=== PATIENT | male | born 1990 | race Caucasian/White ===

== ENCOUNTER → 2018-03-14 11:02 | Outpatient (CLI) | payer OTHER, MEDICAID, SELFPAY ==
[2018-03-14 12:02] LABS: Add Manual Diff / Slide Review NO; Basophils Absolute Auto 0 /uL (0-100); Basophils Percent Auto 0.9 % (0-2); Eosinophils Absolute Auto 400 /uL (0-450); Hematocrit 40.3 % (41-53); Hemoglobin 14.2 g/dL (13.5-17.5); Lymphocytes Absolute Auto 2200 /uL (1100-4500); Lymphocytes Percent Auto 47.5 % (25-40); Mean Corpuscular HGB Conc 35.3 % (30-36); Mean Corpuscular Hemoglobin 32.3 PG (26-34); Mean Corpuscular Volume 91.4 fL (80-100); Monocytes Absolute Auto 300 /uL (0-900); Monocytes Percent Auto 7.3 % (3-14); Neutrophils Absolute Auto 1600 /uL (1500-7000); Neutrophils Percent Auto 36.3 % (50-75); Platelet Count 136 X10^3/uL (150-400); Red Cell Distribution Width 13.4 % (11.6-14.8); White Blood Cell Count 4.5 X10^3/uL (4.5-11.0)
[2018-03-14 12:25] LABS: Alanine Aminotransferase 55 IU/L (21-72); Albumin 4.2 g/dL (3.5-5.0); Albumin Globulin Ratio 1.6 (1.0-2.8); Alkaline Phosphatase 47 U/L (38-126); Aspartate Aminotransferase 37 IU/L (17-59); BUN Creatinine Ratio 17.1 (6-22); Bilirubin Total 0.5 mg/dL (0.2-1.3); Blood Urea Nitrogen 12 mg/dL (9-20); Carbon Dioxide 22 mmol/L (22-32); Chloride 103 mmol/L (98-107); Estimated Glomerular Filt Rate > 60.0 mL/min (>60); Globulin 2.6 g/dL (1.7-4.1); Glucose 157 mg/dL (70-100); HEMOLYSIS < 15 (0-50); Potassium 3.7 mmol/L (3.4-5.1); Sodium 137 mmol/L (137-145); Total Protein 6.8 g/dL (6.3-8.2)
[2018-03-16 14:49] LABS: Valproic Acid (Depakene) Total 74.7 mg/L (50.0-100.0)
== END ==
PROVIDERS: PCP Family Medicine; Visit Provider Nurse Practitioner Psychiatric/Mental Health
DX: F20.9 Schizophrenia, unspecified (principal)
CPT/HCPCS: 36415; 80053; 80164; 85025

== ENCOUNTER → 2018-09-05 10:05 | Outpatient (CLI) | payer OTHER, MEDICAID, SELFPAY ==
[2018-09-05 10:49] LABS: Add Manual Diff / Slide Review NO; Basophils Absolute Auto 0 /uL (0-100); Basophils Percent Auto 0.8 % (0-2); Eosinophils Absolute Auto 300 /uL (0-450); Hematocrit 38.3 % (41-53); Hemoglobin 13.2 g/dL (13.5-17.5); Lymphocytes Absolute Auto 3200 /uL (1100-4500); Lymphocytes Percent Auto 55.8 % (25-40); Mean Corpuscular HGB Conc 34.6 % (30-36); Mean Corpuscular Hemoglobin 31.7 PG (26-34); Mean Corpuscular Volume 91.6 fL (80-100); Monocytes Absolute Auto 500 /uL (0-900); Monocytes Percent Auto 8.1 % (3-14); Neutrophils Absolute Auto 1700 /uL (1500-7000); Neutrophils Percent Auto 29.3 % (50-75); Platelet Count 153 X10^3/uL (150-400); Red Blood Cell Count 4.18 X10^6/uL (4.5-5.9); Red Cell Distribution Width 13.3 % (11.6-14.8); White Blood Cell Count 5.7 X10^3/uL (4.5-11.0)
[2018-09-05 11:14] LABS: Alanine Aminotransferase 109 IU/L (21-72); Albumin 4.1 g/dL (3.5-5.0); Albumin Globulin Ratio 1.6 (1.0-2.8); Alkaline Phosphatase 46 U/L (38-126); Aspartate Aminotransferase 80 IU/L (17-59); BUN Creatinine Ratio 14.4 (6-22); Bilirubin Total 0.6 mg/dL (0.2-1.3); Blood Urea Nitrogen 13 mg/dL (9-20); Calcium 9.2 mg/dL (8.4-10.2); Carbon Dioxide 23 mmol/L (22-32); Chloride 100 mmol/L (98-107); Estimated Glomerular Filt Rate > 60.0 mL/min (>60); Globulin 2.6 g/dL (1.7-4.1); Glucose 82 mg/dL (70-100); HEMOLYSIS < 15 (0-50); Potassium 4.1 mmol/L (3.4-5.1); Sodium 135 mmol/L (137-145); Total Protein 6.7 g/dL (6.3-8.2)
[2018-09-08 14:35] LABS: Valproic Acid (Depakene) Total 84.9 mg/L (50.0-100.0)
== END ==
PROVIDERS: PCP Family Medicine; Visit Provider Nurse Practitioner Psychiatric/Mental Health
DX: F20.9 Schizophrenia, unspecified (principal)
CPT/HCPCS: 36415; 80053; 80164; 85025

== ENCOUNTER → 2019-01-18 10:13 | Outpatient (CLI) | payer OTHER, MEDICAID, SELFPAY ==
[2019-01-18 11:23] LABS: Add Manual Diff / Slide Review NO; Basophils Absolute Auto 0 /uL (0-100); Basophils Percent Auto 0.6 % (0-2); Eosinophils Absolute Auto 200 /uL (0-450); Eosinophils Percent Auto 3.2 % (2-4); Hematocrit 39.7 % (41-53); Hemoglobin 14.1 g/dL (13.5-17.5); Lymphocytes Absolute Auto 2700 /uL (1100-4500); Lymphocytes Percent Auto 54.1 % (25-40); Mean Corpuscular HGB Conc 35.6 % (30-36); Mean Corpuscular Hemoglobin 32.7 PG (26-34); Mean Corpuscular Volume 91.8 fL (80-100); Monocytes Absolute Auto 500 /uL (0-900); Monocytes Percent Auto 10.2 % (3-14); Neutrophils Absolute Auto 1600 /uL (1500-7000); Neutrophils Percent Auto 31.9 % (50-75); Platelet Count 133 X10^3/uL (150-400); Red Blood Cell Count 4.32 X10^6/uL (4.5-5.9); Red Cell Distribution Width 13.3 % (11.6-14.8)
[2019-01-18 11:34] LABS: Alanine Aminotransferase 48 IU/L (<50); Albumin 4.2 g/dL (3.5-5.0); Albumin Globulin Ratio 1.6 (1.0-2.8); Alkaline Phosphatase 43 U/L (38-126); Aspartate Aminotransferase 45 IU/L (17-59); BUN Creatinine Ratio 14.4 (6-22); Bilirubin Total 0.6 mg/dL (0.2-1.3); Blood Urea Nitrogen 13 mg/dL (9-20); Calcium 9.4 mg/dL (8.4-10.2); Carbon Dioxide 24 mmol/L (22-32); Chloride 105 mmol/L (98-107); Cholesterol 251 mg/dL (140-199); Estimated Glomerular Filt Rate > 60.0 mL/min (>60); Globulin 2.7 g/dL (1.7-4.1); Glucose 86 mg/dL (70-100); HDL Cholesterol 20 mg/dL (40-60); HEMOLYSIS < 15 (0-50); Sodium 138 mmol/L (137-145); Total Protein 6.9 g/dL (6.3-8.2); Triglycerides 463 mg/dL (35-150)
[2019-01-18 11:36] LABS: Hemoglobin A1C% w Est Avg Glu 4.9 % (4.0-6.0)
[2019-01-23 07:48] LABS: Valproic Acid (Depakene) Total 144.1 mg/L (50.0-100.0)
== END ==
PROVIDERS: Family Provider Internal Medicine; PCP Anesthesiology Pain Medicine; Visit Provider Nurse Practitioner Psychiatric/Mental Health
DX: F20.9 Schizophrenia, unspecified (principal); F25.0 Schizoaffective disorder, bipolar type
CPT/HCPCS: 36415; 80053; 80061; 80164; 83036; 85025

== ENCOUNTER → 2019-02-06 09:30 | Outpatient (CLI) | payer OTHER, MEDICAID, SELFPAY ==
[2019-02-09 14:52] LABS: Valproic Acid (Depakene) Total 85.2 mg/L (50.0-100.0)
== END ==
PROVIDERS: Family Provider Internal Medicine; Visit Provider Nurse Practitioner Psychiatric/Mental Health
DX: F20.9 Schizophrenia, unspecified (principal)
CPT/HCPCS: 36415; 80164

== ENCOUNTER → 2019-07-31 10:10 | Outpatient (CLI) | payer OTHER, MEDICAID, SELFPAY ==
[2019-07-31 11:47] LABS: Add Manual Diff / Slide Review NO; Basophils Absolute Auto 100 /uL (0-100); Eosinophils Absolute Auto 800 /uL (0-450); Eosinophils Percent Auto 14.1 % (2-4); Hematocrit 39.9 % (41-53); Hemoglobin 13.9 g/dL (13.5-17.5); Lymphocytes Absolute Auto 2300 /uL (1100-4500); Mean Corpuscular HGB Conc 34.8 % (30-36); Mean Corpuscular Hemoglobin 31.7 PG (26-34); Mean Corpuscular Volume 90.9 fL (80-100); Monocytes Absolute Auto 600 /uL (0-900); Monocytes Percent Auto 10.3 % (3-14); Neutrophils Absolute Auto 2200 /uL (1500-7000); Neutrophils Percent Auto 36.6 % (50-75); Platelet Count 177 X10^3/uL (150-400); Red Blood Cell Count 4.39 X10^6/uL (4.5-5.9); Red Cell Distribution Width 13.7 % (11.6-14.8)
[2019-07-31 11:59] LABS: Alanine Aminotransferase 40 IU/L (<50); Albumin 4.2 g/dL (3.5-5.0); Albumin Globulin Ratio 1.5 (1.0-2.8); Alkaline Phosphatase 44 U/L (38-126); Aspartate Aminotransferase 32 IU/L (17-59); BUN Creatinine Ratio 11.5 (6-22); Bilirubin Total 0.5 mg/dL (0.2-1.3); Blood Urea Nitrogen 9 mg/dL (9-20); Calcium 9.7 mg/dL (8.4-10.2); Carbon Dioxide 23 mmol/L (22-32); Chloride 105 mmol/L (98-107); Estimated Glomerular Filt Rate > 60.0 mL/min (>60); Globulin 2.8 g/dL (1.7-4.1); Glucose 87 mg/dL (70-100); HEMOLYSIS 16 (0-50); Potassium 3.8 mmol/L (3.4-5.1); Sodium 139 mmol/L (137-145)
[2019-08-01 04:41] LABS: Valproic Acid (Depakene) Total 93 ug/mL (50-100)
== END ==
PROVIDERS: Family Provider Internal Medicine; PCP Internal Medicine; Referring Provider Nurse Practitioner Psychiatric/Mental Health; Visit Provider Nurse Practitioner Psychiatric/Mental Health
DX: I20.9 Angina pectoris, unspecified (principal)
CPT/HCPCS: 36415; 80053; 80164; 85025

== ENCOUNTER → 2019-08-12 10:29 | Outpatient (CLI) | payer OTHER, MEDICAID, SELFPAY ==
[2019-08-12 12:50] LABS: Cholesterol 212 mg/dL (140-199); HDL Cholesterol 21 mg/dL (40-60); Triglycerides 431 mg/dL (35-150)
== END ==
PROVIDERS: Family Provider Internal Medicine; PCP Internal Medicine; Referring Provider Internal Medicine; Visit Provider Internal Medicine
DX: E78.5 Hyperlipidemia, unspecified (principal)
CPT/HCPCS: 36415; 80061

== ENCOUNTER → 2019-11-15 14:02 | Outpatient (CLI) | payer OTHER, MEDICAID, SELFPAY ==
[2019-11-15 15:16] LABS: Alanine Aminotransferase 29 IU/L (<50); Albumin 4.2 g/dL (3.5-5.0); Albumin Globulin Ratio 1.7 (1.0-2.8); Alkaline Phosphatase 48 U/L (38-126); Aspartate Aminotransferase 29 IU/L (17-59); Bilirubin Total 0.5 mg/dL (0.2-1.3); Bilirubin Unconjugated 0.4 mg/dL (0.0-1.1); Cholesterol 173 mg/dL (140-199); Globulin 2.5 g/dL (1.7-4.1); HDL Cholesterol 26 mg/dL (40-60); HEMOLYSIS < 15 (0-50); LDL Cholesterol Calculated 81 mg/dL (<100); Total Protein 6.7 g/dL (6.3-8.2); Triglycerides 332 mg/dL (35-150)
== END ==
PROVIDERS: Family Provider Internal Medicine; PCP Student in an Organized Health Care Education/Training Program; Referring Provider Student in an Organized Health Care Education/Training Program; Visit Provider Student in an Organized Health Care Education/Training Program
DX: E78.2 Mixed hyperlipidemia (principal); Z79.899 Other long term (current) drug therapy
CPT/HCPCS: 36415; 80061; 80076

== ENCOUNTER → 2020-03-18 09:16 | Outpatient (CLI) | payer OTHER, MEDICAID, SELFPAY ==
[2020-03-19 02:44] LABS: Valproic Acid (Depakene) Total 84 ug/mL (50-100)
== END ==
PROVIDERS: Family Provider Internal Medicine; PCP Student in an Organized Health Care Education/Training Program; Referring Provider Nurse Practitioner Psychiatric/Mental Health; Visit Provider Nurse Practitioner Psychiatric/Mental Health
DX: F20.9 Schizophrenia, unspecified (principal)
CPT/HCPCS: 36415; 80164

== ENCOUNTER → 2021-03-06 16:14 | Outpatient (CLI) | payer OTHER, MEDICAID, SELFPAY ==
--- NOTE | 2021-03-06 16:19 | DI.RAD.S_ITS ---
PROCEDURE: XR ANKLE LT MIN 3V INDICATIONS: ankle strain TECHNIQUE: 3 views of the ankle were acquired. COMPARISON: None. FINDINGS: Bones: No fractures or dislocations. Ankle mortise is normally aligned. No suspicious bony lesions. The talar dome demonstrates no alejandro abnormality. Plantar and Achilles calcaneal spurs are seen. A presumed bone island can be seen involving the anterior aspect of the calcaneus. Soft tissues: Prominent soft tissue swelling is seen medially and laterally. IMPRESSION: Soft tissue swelling is seen, without an acute bony abnormality seen by plain film. If there is point tenderness (or other clinical suspicion for a fracture not seen on these images) then a dedicated CT or a short-term followup plain film series could be considered for further evaluation, as clinically appropriate. Dictated by: Cristóbal Neil M.D. on 03/06/2021 at 15:50 Approved by: Cristóbal Neil M.D. on 03/06/2021 at 15:51
== END ==
PROVIDERS: Family Provider Internal Medicine; PCP Student in an Organized Health Care Education/Training Program; Referring Provider Nurse Practitioner Family; Visit Provider Nurse Practitioner Family
DX: S96.912A Strain of unspecified muscle and tendon at ankle and foot level, left foot, initial encounter (principal)
CPT/HCPCS: 73610

== ENCOUNTER → 2022-04-30 09:29 | Outpatient (CLI) | payer OTHER, MEDICAID, SELFPAY ==
[2022-04-30 12:22] LABS: Cholesterol 193 mg/dL (140-199); HDL Cholesterol 24 mg/dL (40-60); LDL Cholesterol Calculated 97 mg/dL (<100); Triglycerides 358 mg/dL (35-150)
== END ==
PROVIDERS: Family Provider Internal Medicine; PCP Student in an Organized Health Care Education/Training Program; Referring Provider Student in an Organized Health Care Education/Training Program; Visit Provider Student in an Organized Health Care Education/Training Program
DX: E78.2 Mixed hyperlipidemia (principal)
CPT/HCPCS: 36415; 80061

== ENCOUNTER → 2023-01-06 08:59 | Outpatient (CLI) | payer OTHER, MEDICAID, SELFPAY ==
[2023-01-06 10:43] LABS: Hemoglobin A1C% w Est Avg Glu 5.5 % (4.0-6.0)
[2023-01-06 11:04] LABS: Alanine Aminotransferase 34 IU/L (<50); Albumin 4.3 g/dL (3.5-5.0); Albumin Globulin Ratio 1.5 (1.0-2.8); Alkaline Phosphatase 43 U/L (38-126); Aspartate Aminotransferase 42 IU/L (17-59); BUN Creatinine Ratio 10.4 (6-22); Bilirubin Total 0.8 mg/dL (0.2-1.3); Blood Urea Nitrogen 7 mg/dL (9-20); Calcium 9.8 mg/dL (8.4-10.2); Carbon Dioxide 28 mmol/L (22-32); Chloride 100 mmol/L (98-107); Estimated Glomerular Filt Rate > 60 mL/min (>60); Globulin 2.8 g/dL (1.7-4.1); Glucose 86 mg/dL (70-100); HEMOLYSIS 44 (0-50); Potassium 4.5 mmol/L (3.4-5.1); Sodium 138 mmol/L (137-145); Total Protein 7.1 g/dL (6.3-8.2)
== END ==
PROVIDERS: Family Provider Internal Medicine; Referring Provider Physician Assistant; Visit Provider Physician Assistant
DX: I10 Essential (primary) hypertension (principal); F20.9 Schizophrenia, unspecified
CPT/HCPCS: 36415; 80053; 83036; 84443

== ENCOUNTER → 2023-03-31 13:19 | Outpatient (CLI) | payer OTHER, MEDICAID, SELFPAY ==
[2023-04-02 09:40] LABS: Valproic Acid (Depakene) Total 64 ug/mL (50-100)
== END ==
PROVIDERS: Family Provider Internal Medicine; PCP Family Medicine; Referring Provider Nurse Practitioner Psychiatric/Mental Health; Visit Provider Nurse Practitioner Psychiatric/Mental Health
DX: F25.0 Schizoaffective disorder, bipolar type (principal)
CPT/HCPCS: 36415; 80164

== ENCOUNTER → 2023-10-06 10:18 | Outpatient (CLI) | payer OTHER, MEDICAID, SELFPAY ==
[2023-10-06 12:26] LABS: Cholesterol 151 mg/dL (140-199); HDL Cholesterol 20 mg/dL (40-60); LDL Cholesterol Calculated 84 mg/dL (<100); Triglycerides 236 mg/dL (35-150)
== END ==
PROVIDERS: Family Provider Internal Medicine; PCP Family Medicine; Referring Provider Family Medicine; Visit Provider Family Medicine
DX: E78.2 Mixed hyperlipidemia (principal); I10 Essential (primary) hypertension; F20.9 Schizophrenia, unspecified; Z68.42 Body mass index [BMI] 45.0-49.9, adult; E66.01 Morbid (severe) obesity due to excess calories
CPT/HCPCS: 36415; 80061

== ENCOUNTER 2023-11-06 23:54 | Emergency (ER) | payer OTHER, MEDICAID, SELFPAY ==
[2023-11-06 23:56] VITALS: BP 143/89
[2023-11-06 23:57] VITALS: PULSE 119; O2SAT 98
[2023-11-07] VITALS: PULSE 117; O2SAT 97
[2023-11-07 00:01] VITALS: BP 166/89; PULSE 120; O2SAT 97
[2023-11-07 00:09] VITALS: BP 166/89; PULSE 111; RESP 24; TEMP 36.7; O2SAT 99; BMI 38.0
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
--- NOTE | 2023-11-07 00:19 | PC.NURSE ---
Pt is aware of his mental health history and feels that it is about that time of year for him to have a manic episode. He has not yet taken his night time medications.
[2023-11-07 00:33] VITALS: BP 133/86; PULSE 117; O2SAT 97
== END 2023-11-07 00:59 | disposition home or self-care (01) ==
PROVIDERS: Emergency Provider Emergency Medicine; Family Provider Internal Medicine; PCP Family Medicine
DX: F20.9 Schizophrenia, unspecified (principal); R00.0 Tachycardia, unspecified
CPT/HCPCS: 99283

== ENCOUNTER 2023-11-07 08:34 | Emergency (ER) | payer OTHER, MEDICAID, SELFPAY ==
[2023-11-07] VITALS (7 sets, daily range): BP systolic 157–164; BP diastolic 87–90; PULSE 102–145; RESP 18–24; TEMP 36.8; O2SAT 96–98; BMI 47.9
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
[2023-11-07 09:15] LABS: Add Manual Diff / Slide Review NO; Basophils Absolute Auto 100 /uL (0-100); Eosinophils Absolute Auto 200 /uL (0-450); Eosinophils Percent Auto 2.7 % (2-4); Hematocrit 40.6 % (41-53); Lymphocytes Absolute Auto 2100 /uL (1100-4500); Lymphocytes Percent Auto 26.3 % (25-40); Mean Corpuscular HGB Conc 34.4 % (30-36); Mean Corpuscular Hemoglobin 30.9 PG (26-34); Mean Corpuscular Volume 89.7 fL (80-100); Monocytes Absolute Auto 600 /uL (0-900); Monocytes Percent Auto 7.7 % (3-14); Neutrophils Absolute Auto 4900 /uL (1500-7000); Neutrophils Percent Auto 62.3 % (50-75); Platelet Count 237 X10^3/uL (150-400); Red Blood Cell Count 4.53 X10^6/uL (4.5-5.9); Red Cell Distribution Width 14.2 % (11.6-14.8); White Blood Cell Count 7.9 X10^3/uL (4.5-11.0)
[2023-11-07 09:27] LABS: Acetaminophen < 10 ug/mL (10-30); Alanine Aminotransferase 71 IU/L (<50); Albumin 4.4 g/dL (3.5-5.0); Albumin Globulin Ratio 1.4 (1.0-2.8); Alkaline Phosphatase 51 U/L (38-126); Aspartate Aminotransferase 77 IU/L (17-59); BUN Creatinine Ratio 25.6 (6-22); Bilirubin Total 0.7 mg/dL (0.2-1.3); Blood Urea Nitrogen 22 mg/dL (9-20); Calcium 9.4 mg/dL (8.4-10.2); Carbon Dioxide 30 mmol/L (22-32); Chloride 100 mmol/L (98-107); Estimated Glomerular Filt Rate > 60 mL/min (>60); Ethanol (ETOH) < 10 mg/dL; Globulin 3.1 g/dL (1.7-4.1); Glucose 104 mg/dL (70-100); HEMOLYSIS < 15 (0-50); Potassium 3.3 mmol/L (3.4-5.1); Salicylate < 1.0 mg/dL (<20); Sodium 136 mmol/L (137-145); Total Protein 7.5 g/dL (6.3-8.2)
[2023-11-07 09:36] LABS: COVID19 -Nasal RAPID Negative (Negative)
[2023-11-07 10:10] LABS: TSH w/ Reflex to FT4 0.77 uIU/mL (0.47-4.68)
--- NOTE | 2023-11-07 10:19 | PC.NURSE ---
RN asked pt if he could provide a urine sample. Pt states If you want urine you know what to do, RN's just tease and tickle RN replied No, that is not what we do and that his statement is inappropriate and will not be tolerated.
--- NOTE | 2023-11-07 11:55 | PC.NURSE ---
This RN and MERLENE Valle attempted to go into the room to ask the patient to give us a urine sample, he told this RN that if he wants us to he will pee on her and robin her as my territory if thats what you want?. RN's left the room and left the door keith, provider notified.
--- NOTE | 2023-11-07 12:02 | PC.NURSE ---
RN again asked pt to provide urine sample. Pt states I will not give you a urine sample unless you look at my pee pee RN explains to pt that is inappropriate and not acceptable behavior in the hospital. Pt then states I just shit myself and it is your job to clean me up RN explained to pt that he is able to walk to the bathroom and the RN can provide hygiene supplies to clean himself up. Pt then lunges up towards RN and yelled you are my you shall respect male dominance, where is your father? RN left room for safety and notified Dr. Feliz of pt's grandiose ideas and increasing agitation in behavior. Pt currently laying in bed. Will monitor for any increasing aggression in behavior
--- NOTE | 2023-11-07 12:29 | PC.NURSE ---
Patient attempting to go to the bathroom and approached RT Silver and said You know that I could kill you right now?. Patient ripped out his IV and is currently in the bathroom banging around.
--- NOTE | 2023-11-07 12:46 | CM.SWNOTE ---
Addendum entered by Helen Calzada 11/07/23 13:03: REBAR WORKER calls patient's prescriber Nani Duran DNP, OUT [employer] OUT CIGAR MAKER [employer], she reports that she has seen patient for 8-10 years and he is a very quaker and nice win, it is reported that she saw him last week and he was quite talkative and talking about being active in the jain. It is reported that patient has his father as a support and patient lives independently in an apartment. Nani states she has never known him to be manic and he typically takes rx as prescribed. It is reported that she refilled his Wellbutrin which is prescribed by his PCP Dr. Cedeno. Nani reports that possibly this could be a response to wellbutrin, not taking rx or an infection. She confirms his rx as Austedo 12mg twice dayily, Wellbutrin Sustained release 150mg, Naltrexone (prescibed by PCP for weight loss), Depakote DR 1000 mg twice daily and Risperidone 3 mg twice daily. Nani states that she can be reached by phone for records and further coordination of care (ph. # [phone]) Helen Calzada, [facility] Original Note: ED REBAR WORKER - Laundry Clerk Assessment REBAR WORKER - Laundry Clerk Assessment Start: 11/07/23 11:55 Freq: Status: Active Protocol: Document 11/07/23 11:57 LN (Rec: 11/07/23 12:40 LN [id number]) REBAR WORKER/Laundry Clerk Assessment Time Spent with Patient Start date 11/07/23 Visit Start Time 11:35 End date 11/07/23 Visit End Time 11:50 Total time Care Management spent on 15 minutes patient visit-in minutes Mental Health Screening Include Onset, Duration, Intensity Presenting Problem Patient presents to ED for the second time in 24 hours due to bystanders' concern for patient's altered behavior. Patient was found [place] bare[place] [employer] [place]. Patient requesting to go to [facility]. Patient presents with loud, labile, tangential speech discussing delusions of want to go to [place] to find my spiritual father. There is concern for internal stimuli and that patient is gravely disabled. Precipitating Event(s) Patient states this is a time of crisis for me. Patient is not able to explain his current state, patient states he has been taking his medications as prescribed, patient states he saw his prescriber rubber goods assembler last week. Patient states I want to go somewhere where I can smoke all the time. Patient Strengths Patient states his father is a support. Current Behavioral Health Provider(s) Patient states he sees Nani Include Facility, Provider, Ph. # CLAUDIA Ugarte, JAIR (Ph. # ) Patient states he sees her every few months. Psych. Hx Mental Health and Chemical Patient has hx of Bipolar Dependency Disorder, Psychosis, & Schizophrenia. Patient denies any substance. Patient has rx for 12 mg of Austedo, Bupropion SR 150 mg, Naltrexone 50mh, Propanolol 20mg, and Risperidone 3mg. Family Hx of Behavioral Abuse None reported. Psychiatric Hospitalizations (date(s)/ Patient is unable to answer location) his history of placements, patient does state that he has been at [facility] which is an K[facility] placement facility. Psychosocial information & Support Patient is 33 y/o male who Systems resides in an apartment in [place]. Patient states his father is a support. School/Work Patient states he is no employed and does not receive disability. Legal Concerns Legal Matters - Outstanding Issues None reported Mental Status Orientation (Person/Place/Time) A/Ox3 Stated Mood it is a time of crisis for me Affect (Congruent with Mood?) euphoric, labile Thought Content - Specify/Describe Patient denies visual or Obsessions, Delusions, Hallucinations auditory hallucinations or paranoia. Patient presents with grandiose ideas that are quaker, demonic or hierarchical in nature. Patient states he has dominated earth. Patient requests the room to be dark in reference to his soul. Patient requests representation from spiritual leaders [facility] to find spiritual father etc. There is concern for patient's internal stimulus. Thought Processes (Qnfjclo-Zmlqnwtp-Otit Tangential, thought blocking Lznvgagf-Gvqjejdr-Kudzecqjug- Dkvdqxmwhfauzg-Itgwnxb-Ptqltgjbenph- Thought Blocking) Speech (Yjyiud-Wahw-Hczrsty-Rapid-Soft- rapid, loud, pressured Loud-Pressured) Motor (Wfgcdd-Eisvhzyok-Scwl-Other) normal, patient lies down on bed Insight (Dtcc-Celg-Yetn/Limited) poor/limited Judgement (Hdor-Umic-Rmck/Limited) poor/limited Impulse Control (Adequate-Impaired) somewhat impaired, patient is able to lower voice when asked . Memory (Ynwwjaqbq-Wkyrkx-Vefywj, Not formally assessed Impaired-Intact) Concentration (Intact-Impaired) somewhat intact. Attention (Intact-Impaired) intact Behavior (Appropriate-Inappropriate) somewhat appropriate, patient presents with loud voice, and makes inappropriate statements . Additional Comment Patient states he is seeking BH treatment but is unable to provide a urine sample and patient states I have Armanian genetics and Indonesian genetics. Patient is explained that providing a urine sample is a part of the process for medical clearance for BH placement. Patient continues to present with some resistance and understanding. Risk Assessment Suicidal Ideation (Plan) No Homicidal Ideation (Plan) No Comment Patient denies hx of SI, self harm, HI or hx of harming others to this REBAR WORKER. After assessment it is reported that Patient states to RT tech I could kill you. Patient makes threat because he needs a CPAP machine with honey in it because he came [place] from space. Intervention Intervention REBAR WORKER enters room to meet with patient. Patient presents as disheveled , barefoot, somewhat poor eye contact, pressured speech, & labile presentation. Patient presents with grandiose statements, loud speech, has made inappropriate nonsensical verbal statements . Patient acknowledges his state of crisis but states he has been taking rx as prescribed. Patient makes statements that he is voluntarily seeking BH placement. It is the opinion of this REBAR WORKER that patient is gravely disabled and responding to internal stimuli and not able to voluntarily be placed at a BH facility at this time. It is the opinion of this REBAR WORKER that patient is in need of DCR evaluation to determine KARIN placement for safety, crisis stabilization and medication management. REBAR WORKER reviews the above with ED provider Dr. Feliz who indicates agreement and understanding. Plan RA Plan REBAR WORKER to dispatch DCR for KARIN evaluation upon medical clearance. Helen Calzada, GEOPHYSICAL OPERATOR
[2023-11-07] MEDS: risperiDONE 1 MG TABLET 3 MG PO (12:48)
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
[2023-11-07 13:25] LABS: Ur Creatinine Normal (Normal); Ur Specific Gravity Normal (Normal); Urine Amphetamines Negative (Negative); Urine Barbiturates Negative (Negative); Urine Benzodiazepines Negative (Negative); Urine Cocaine Negative (Negative); Urine MDMA Negative (Negative); Urine Methadone Negative (Negative); Urine Methamphetamines Negative (Negative); Urine Opiates Negative (Negative); Urine Oxycodone Negative (Negative); Urine Phencyclidine Negative (Negative); Urine THC Negative (Negative); Urine Tricyclic Antidepressant Negative (Negative); Urine pH Normal (Normal)
[2023-11-07 13:28] LABS: Bacteria Urine Moderate (10-30); RBC Urine 0-1/HPF (0-5/HPF); Squamous Epithelial Cell Urine 1-5 /HPF (0-5/HPF); Urine Volume 10mL (spun); WBC Urine 0-1/HPF (0-5/HPF)
[2023-11-07 13:29] LABS: Culture Indicated Urine Cult Not Indicated
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
--- NOTE | 2023-11-07 15:32 | PC.NURSE ---
1452- [facility] was called again to assist getting the patient changed and into new scrubs after going to the bathroom on the floor. Multiple staff in the room to clean up the floor and the bed, patient offered fluids.
--- NOTE | 2023-11-07 16:12 | PC.NURSE ---
at 1555 pt found to be calm and sleeping on mattress on floor. RN opened door of seclusion. electrician outside room monitoring pt safety. Seclusion lifted at 1555
--- NOTE | 2023-11-07 17:21 | CM.SWNOTE ---
ED GAMING WORKER Note DCR Ailyn is assigned, Ailyn assesses patient and patient refuses to meet with her. Ailyn reaches out to patient's metalizer field operation and patient's father as collateral. Ailyn determines that patient is appropriate for KARIN detainment and patient is placed at [facility]. [facility] sets up transport for 2000 arrival, [facility] to arrive at 1920. Ailyn DCR serves patient detainment paperwork in room. Plan: patient to transfer to [facility] for [facility]IN inpatient hospitalization this evening. Helen Calzada, SUPERVISOR BOILER REPAIR
[2023-11-07] MEDS: LORazepam 0.5 MG TABLET 2 MG PO (19:12)
[2023-11-07] MEDS: POTASSIUM CHLORIDE 20 MEQ TAB 40 MEQ PO (19:13)
== END 2023-11-07 19:20 ==
PROVIDERS: Emergency Provider Emergency Medicine; Family Provider Internal Medicine; PCP Family Medicine
DX: F20.9 Schizophrenia, unspecified (principal); M79.672 Pain in left foot; M79.671 Pain in right foot; R00.0 Tachycardia, unspecified; R45.1 Restlessness and agitation; Z11.52 Encounter for screening for COVID-19
CPT/HCPCS: 80053; 80305; 80320; 80329; 81003; 81015; 84443; 85025; 87635; 99285; G0480

== ENCOUNTER → 2023-12-06 15:23 | Outpatient (CLI) | payer OTHER, MEDICAID, SELFPAY ==
[2023-12-06 17:33] LABS: Alanine Aminotransferase 22 IU/L (<50); Albumin Globulin Ratio 1.5 (1.0-2.8); Alkaline Phosphatase 42 U/L (38-126); Aspartate Aminotransferase 29 IU/L (17-59); BUN Creatinine Ratio 22.8 (6-22); Bilirubin Total 0.4 mg/dL (0.2-1.3); Bilirubin Unconjugated 0.2 mg/dL (0.0-1.1); Blood Urea Nitrogen 18 mg/dL (9-20); Calcium 9.4 mg/dL (8.4-10.2); Carbon Dioxide 27 mmol/L (22-32); Chloride 102 mmol/L (98-107); Estimated Glomerular Filt Rate > 60 mL/min (>60); Globulin 2.7 g/dL (1.7-4.1); Glucose 122 mg/dL (70-100); HEMOLYSIS 23 (0-50); Potassium 3.5 mmol/L (3.4-5.1); Sodium 137 mmol/L (137-145); Total Protein 6.7 g/dL (6.3-8.2)
== END ==
PROVIDERS: Family Provider Internal Medicine; PCP Family Medicine; Referring Provider Family Medicine; Visit Provider Family Medicine
DX: I10 Essential (primary) hypertension (principal); E78.2 Mixed hyperlipidemia; N28.9 Disorder of kidney and ureter, unspecified; F31.9 Bipolar disorder, unspecified
CPT/HCPCS: 36415; 80053; 80076; 80164

== ENCOUNTER → 2024-03-15 14:40 | Outpatient (CLI) | payer OTHER, SELFPAY ==
[2024-03-16 04:40] LABS: Valproic Acid (Depakene) Total 70 ug/mL (50-100)
== END ==
PROVIDERS: Family Provider Internal Medicine; PCP Family Medicine; Referring Provider Nurse Practitioner Psychiatric/Mental Health; Visit Provider Nurse Practitioner Psychiatric/Mental Health
DX: F25.0 Schizoaffective disorder, bipolar type (principal)
CPT/HCPCS: 36415; 80164

== ENCOUNTER → 2024-05-14 13:03 | Outpatient (CLI) | payer OTHER, SELFPAY ==
[2024-05-14 13:23] LABS: Add Manual Diff / Slide Review NO; Basophils Absolute Auto 100 /uL (0-100); Basophils Percent Auto 1.2 % (0-2); Eosinophils Absolute Auto 200 /uL (0-450); Eosinophils Percent Auto 3.6 % (2-4); Hematocrit 42.4 % (41-53); Hemoglobin 14.6 g/dL (13.5-17.5); Lymphocytes Absolute Auto 2500 /uL (1100-4500); Lymphocytes Percent Auto 41.3 % (25-40); Mean Corpuscular HGB Conc 34.4 % (30-36); Mean Corpuscular Hemoglobin 30.7 PG (26-34); Mean Corpuscular Volume 89.1 fL (80-100); Monocytes Absolute Auto 500 /uL (0-900); Monocytes Percent Auto 8.5 % (3-14); Neutrophils Absolute Auto 2700 /uL (1500-7000); Neutrophils Percent Auto 45.4 % (50-75); Platelet Count 191 X10^3/uL (150-400); Red Blood Cell Count 4.76 X10^6/uL (4.5-5.9); Red Cell Distribution Width 13.8 % (11.6-14.8)
[2024-05-14 13:42] LABS: Alanine Aminotransferase 40 IU/L (<50); Albumin 4.5 g/dL (3.5-5.0); Albumin Globulin Ratio 1.6 (1.0-2.8); Alkaline Phosphatase 44 U/L (38-126); Aspartate Aminotransferase 39 IU/L (17-59); BUN Creatinine Ratio 14.6 (6-22); Bilirubin Total 0.7 mg/dL (0.2-1.3); Blood Urea Nitrogen 12 mg/dL (9-20); Calcium 9.4 mg/dL (8.4-10.2); Carbon Dioxide 26 mmol/L (22-32); Chloride 101 mmol/L (98-107); Estimated Glomerular Filt Rate > 60 mL/min (>60); Globulin 2.8 g/dL (1.7-4.1); Glucose 98 mg/dL (70-100); HEMOLYSIS < 15 (0-50); Lipase 163 U/L (23-300); Potassium 3.6 mmol/L (3.4-5.1); Sodium 139 mmol/L (137-145); Total Protein 7.3 g/dL (6.3-8.2)
== END ==
PROVIDERS: Family Provider Internal Medicine; PCP Family Medicine; Referring Provider Physician Assistant; Visit Provider Physician Assistant
DX: R11.10 Vomiting, unspecified (principal)
CPT/HCPCS: 36415; 80053; 83690; 85025

== ENCOUNTER → 2024-05-23 08:16 | Outpatient (CLI) | payer OTHER, MEDICAID, SELFPAY ==
--- NOTE | 2024-05-23 08:18 | DI.US.S_ITS ---
PROCEDURE: US ABDOMEN COMPLETE INDICATIONS: chronic vomiting ivan w/ meals TECHNIQUE: Real-time scanning was performed of the abdominal and retroperitoneal organs, with image documentation. COMPARISON: None. FINDINGS: Liver: Liver is enlarged in size at 18.7 cm craniocaudad and homogeneous in echotexture, diffusely hyperechoic consistent with fatty infiltration. Main portal vein blood flow direction is normal. Gallbladder: Normal. Biliary ducts: Intrahepatic bile ducts are non-dilated. Extrahepatic bile duct caliber measures 6.0 mm. Normal is 6-7 mm or less in diameter, or 10 mm or less post-cholecystectomy. Pancreas: Visualized portions of the pancreas are sonographically normal. Spleen: Spleen is enlarged in size at 15.7 cm craniocaudad with an overall volume of 634 cc, and homogeneous in echotexture. Kidneys: Kidneys are normal in size and echotexture. Right kidney measures 14.6 cm long; left kidney measures 14.8 cm long both somewhat larger than expected. No hydronephrosis or nephrolithiasis. No solid masses. Aorta: Visualized aorta is normal in caliber at less than 3 cm. Iliacs: Proximal common iliac arteries are normal in caliber at less than 2.5 cm. IVC: Intrahepatic inferior vena cava is patent. Miscellaneous: No free abdominal fluid. IMPRESSION: Fatty infiltrated enlarged liver and spleen. Kidney size also is unusually prominent bilaterally. No ascites or varices is found. No focal lesion is identified. Dictated by: Krzysztof Sow M.D. on 05/23/2024 at 12:39 Approved by: Krzysztof Sow M.D. on 05/23/2024 at 12:45
== END ==
PROVIDERS: Family Provider Internal Medicine; PCP Family Medicine; Referring Provider Physician Assistant; Visit Provider Physician Assistant
DX: K76.0 Fatty (change of) liver, not elsewhere classified (principal); R11.10 Vomiting, unspecified; R16.2 Hepatomegaly with splenomegaly, not elsewhere classified
CPT/HCPCS: 76700

== ENCOUNTER 2024-08-18 19:19 | Emergency (ER) | payer OTHER, SELFPAY ==
[2024-08-18 19:27] VITALS: BP 190/100; PULSE 97; RESP 18; TEMP 36.7; O2SAT 97; BMI 44.0
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
[2024-08-18] MEDS: SODIUM CHLORIDE 0.9% 1,000 ML 1000 ML IV (19:40)
[2024-08-18 20:04] LABS: Alanine Aminotransferase 24 IU/L (<50); Albumin 4.6 g/dL (3.5-5.0); Albumin Globulin Ratio 1.6 (1.0-2.8); Alkaline Phosphatase 46 U/L (38-126); Aspartate Aminotransferase 28 IU/L (17-59); BUN Creatinine Ratio 12.5 (6-22); Bilirubin Total 0.8 mg/dL (0.2-1.3); Blood Urea Nitrogen 12 mg/dL (9-20); Calcium 9.5 mg/dL (8.4-10.2); Carbon Dioxide 33 mmol/L (22-32); Chloride 96 mmol/L (98-107); Estimated Glomerular Filt Rate > 60 mL/min (>60); Globulin 2.9 g/dL (1.7-4.1); Glucose 97 mg/dL (70-99); HEMOLYSIS 16 (0-50); Lipase 146 U/L (23-300); Magnesium 1.7 mg/dL (1.6-2.3); Potassium 2.9 mmol/L (3.4-5.1); Sodium 138 mmol/L (137-145); Total Protein 7.5 g/dL (6.3-8.2)
[2024-08-18 20:09] LABS: Add Manual Diff / Slide Review NO; Basophils Absolute Auto 100 /uL (0-100); Eosinophils Absolute Auto 300 /uL (0-450); Eosinophils Percent Auto 3.5 % (2-4); Hematocrit 42.2 % (41-53); Hemoglobin 14.8 g/dL (13.5-17.5); Lymphocytes Absolute Auto 2900 /uL (1100-4500); Lymphocytes Percent Auto 39.7 % (25-40); Mean Corpuscular HGB Conc 35.1 % (30-36); Mean Corpuscular Hemoglobin 30.3 PG (26-34); Mean Corpuscular Volume 86.3 fL (80-100); Monocytes Absolute Auto 700 /uL (0-900); Monocytes Percent Auto 9.3 % (3-14); Neutrophils Absolute Auto 3400 /uL (1500-7000); Neutrophils Percent Auto 46.5 % (50-75); Platelet Count 203 X10^3/uL (150-400); Red Blood Cell Count 4.89 X10^6/uL (4.5-5.9); Red Cell Distribution Width 14.6 % (11.6-14.8); White Blood Cell Count 7.3 X10^3/uL (4.5-11.0)
[2024-08-18] MEDS: LACTULOSE 20 GM/30 ML SOLUTION PO (20:55)
[2024-08-18 21:11] VITALS: BP 173/85; PULSE 88; RESP 16; O2SAT 96
== END 2024-08-18 21:03 | disposition home or self-care (01) ==
PROVIDERS: Emergency Provider Student in an Organized Health Care Education/Training Program; Family Provider Internal Medicine; PCP Family Medicine
DX: K59.03 Drug induced constipation (principal)
CPT/HCPCS: 36415; 74177; 80053; 81003; 83605; 83690; 83735; 85025; 96360; 99284; Q9967

== ENCOUNTER → 2024-09-16 11:13 | Outpatient (CLI) | payer OTHER, SELFPAY ==
[2024-09-16 11:40] LABS: Add Manual Diff / Slide Review NO; Hematocrit 41.1 % (41-53); Hemoglobin 14.5 g/dL (13.5-17.5); Lymphocytes Absolute Auto 2200 /uL (1100-4500); Mean Corpuscular HGB Conc 35.3 % (30-36); Mean Corpuscular Hemoglobin 30.7 PG (26-34); Mean Corpuscular Volume 87.2 fL (80-100); Platelet Count 189 X10^3/uL (150-400)
[2024-09-16 11:56] LABS: Alanine Aminotransferase 25 IU/L (<50); Albumin 4.4 g/dL (3.5-5.0); Albumin Globulin Ratio 1.8 (1.0-2.8); Alkaline Phosphatase 46 U/L (38-126); Blood Urea Nitrogen 9 mg/dL (9-20); Calcium 9.4 mg/dL (8.4-10.2); Carbon Dioxide 29 mmol/L (22-32); Chloride 96 mmol/L (98-107); Estimated Glomerular Filt Rate > 60 mL/min (>60); Globulin 2.5 g/dL (1.7-4.1); Glucose 92 mg/dL (70-99); HEMOLYSIS < 15 (0-50); Potassium 2.9 mmol/L (3.4-5.1); Sodium 137 mmol/L (137-145); Total Protein 6.9 g/dL (6.3-8.2)
[2024-09-17 04:10] LABS: Valproic Acid (Depakene) Total 68 ug/mL (50-100)
== END ==
PROVIDERS: Family Provider Internal Medicine; PCP Family Medicine; Referring Provider Nurse Practitioner Psychiatric/Mental Health; Visit Provider Nurse Practitioner Psychiatric/Mental Health
DX: F25.0 Schizoaffective disorder, bipolar type (principal)
CPT/HCPCS: 36415; 80053; 80164; 85025

== ENCOUNTER → 2024-11-28 13:26 | Outpatient (CLI) | payer OTHER, SELFPAY ==
[2024-11-28 14:48] LABS: Hemoglobin A1C% w Est Avg Glu 5.0 % (4.0-6.0)
[2024-11-28 14:58] LABS: Blood Urea Nitrogen 13 mg/dL (9-20); Calcium 9.6 mg/dL (8.4-10.2); Carbon Dioxide 30 mmol/L (22-32); Chloride 97 mmol/L (98-107); Estimated Glomerular Filt Rate > 60 mL/min (>60); Glucose 106 mg/dL (70-99); HEMOLYSIS < 15 (0-50); Potassium 3.0 mmol/L (3.4-5.1); Sodium 138 mmol/L (137-145)
== END ==
PROVIDERS: Family Provider Internal Medicine; PCP Family Medicine; Referring Provider Family Medicine; Visit Provider Family Medicine
DX: Z13.1 Encounter for screening for diabetes mellitus (principal); Z68.42 Body mass index [BMI] 45.0-49.9, adult
CPT/HCPCS: 36415; 80048; 83036